=== PATIENT | male | born 1995 | race American Indian/Alaskan Native ===

== ENCOUNTER 2020-03-08 23:34 | Emergency (ER) | payer OTHER ==
[2020-03-09] MEDS ORDERED: dexAMETHasone 20 MG/5 ML VIAL IV ONE (01:17)
[2020-03-09] MEDS ORDERED: diphenhydrAMINE 50 MG/ML VIAL IV ONE (01:18)
[2020-03-09] MEDS ORDERED: FAMOTIDINE 20 MG/2 ML INJ IV ONE (01:18)
--- NOTE | 2020-03-09 01:33 | Emergency Department Report ---
HPI - General Chief Complaint: Allergic Reaction PUI?: No Time Seen by Provider: 03/09/20 01:17 - HPI HPI: Patient is a 24-year-old male who presents for allergic reaction with generalized rash and swelling of bilateral hands an patient denies history of same d feet. Patient advises unknown insult. There is been no fevers or chills. No nausea or vomiting. No shortness of breath or wheezing or stridor, no chest pain. Symptoms are relieved by nothing tried, symptoms are exacerabted by nothing g ED Past Medical Hx - Past Medical History Previous Medical History?: No - Surgical History Past Surgical History?: No - Social History Smoking Status: Never Smoker Substance Use Type: None - Medications Home Medications: Home Medications Medication Instructions Recorded Confirmed Last Taken Type Metoclopramide [Reglan] 10 mg PO TID #30 tab 03/09/20 Unknown Rx diphenhydrAMINE [Benadryl CAP] 25 mg PO Q8HR PRN #30 capsule 03/09/20 Unknown Rx predniSONE [Deltasone] 20 mg PO QDAY PRN 5 Days #10 tab 03/09/20 Unknown Rx ED Review of Systems ROS: Stated complaint: RASHES ALL OVER BODY/SWOLLEN TONGUE Other details as noted in HPI Constitutional: denies: chills, fever Eyes: vision change ENT: denies: ear pain, throat pain Respiratory: denies: cough, shortness of breath, wheezing Cardiovascular: denies: chest pain, palpitations Endocrine: no symptoms reported Gastrointestinal: denies: abdominal pain, nausea, vomiting, diarrhea Genitourinary: denies: urgency, dysuria Musculoskeletal: denies: back pain, joint swelling, arthralgia Skin: rash, pruritus. denies: lesions Neurological: denies: headache, weakness, paresthesias Psychiatric: denies: anxiety, depression Hematological/Lymphatic: denies: easy bleeding, easy bruising Physical Exam - Physical Exam Vital Signs: Vital Signs 03/09/20 03/09/20 00:35 00:58 Temperature 100.0 F H Pulse Rate 116 H 109 H Respiratory 20 18 Rate Blood Pressure 141/81 O2 Sat by Pulse 97 100 Oximetry General: pt is a/o x 3, with nad. , Physical Exam: Airway is patent no stridor no wheezing there is no shortness of breath , no cp, abd soft and non-tendor , rash resolving ED Course Vital Signs 03/09/20 03/09/20 00:35 00:58 Temperature 100.0 F H Pulse Rate 116 H 109 H Respiratory 20 18 Rate Blood Pressure 141/81 O2 Sat by Pulse 97 100 Oximetry - Reevaluation(s) Reevaluation #1: 03/09/20 02:04 lungs sounds clear bilat , resp even an unlaboerd ED Medical Decision Making - Medical Decision Making Patient advises all symptoms are resolved plan DC to home with prescription for prednisone Benadryl Reglan patient will follow-up with PCP in 2 to 3 days return to emergency department should symptoms worsen. vital signs are improved , pt will be dc'd to home in stable condition. is currently a/o x 3, ambulatory with nad. Critical care attestation.: If time is entered above; I have spent that time in minutes in the direct care of this critically ill patient, excluding procedure time. ED Disposition Clinical Impression: Allergic reaction Qualifiers: Encounter type: initial encounter Qualified Code(s): T78.40XA - Allergy, unspecified, initial encounter Disposition: DC-01 TO HOME OR SELFCARE Is pt being admited?: No Does the pt Need Aspirin: No Condition: Stable Instructions: Allergies (ED) Prescriptions: diphenhydrAMINE [Benadryl CAP] 25 mg PO Q8HR PRN #30 capsule PRN Reason: allergic reactoin predniSONE [Deltasone] 20 mg PO QDAY PRN 5 Days #10 tab PRN Reason: Allergy Symptoms Metoclopramide [Reglan] 10 mg PO TID #30 tab Forms: Work/School Release Form(ED) Time of Disposition: 03:25
[2020-03-09 03:39] VITALS: BP 127/81
== END 2020-03-09 03:39 | disposition home or self-care (01) ==
LOC: ED 23:34
DX: T78.40XA Allergy, unspecified, initial encounter (principal); Z79.899 Other long term (current) drug therapy; X58.XXXA Exposure to other specified factors, initial encounter
CPT/HCPCS: 96374; 96375; 99282; J1100; J1200